=== PATIENT | female | born 1980 | race African-American/Black ===

== ENCOUNTER 2023-04-27 18:44 | Emergency (ER) | payer BC ==
[2023-04-27] MEDS ORDERED: Ibuprofen 200 MG TAB ONE (20:32)
[2023-04-27] MEDS ORDERED: Ondansetron ODT 4 MG TAB ONE (20:32)
[2023-04-27] MEDS ORDERED: Hydrochlorothiazide 25 MG TAB PO SCH (20:45)
== END 2023-04-27 21:50 | disposition home or self-care (01) ==
LOC: CSHERS 18:44
DX: I10 Essential (primary) hypertension (principal)
CPT/HCPCS: 99283; Q0162

== ENCOUNTER 2024-06-24 13:08 | Outpatient (CLI) | payer BC | END 2024-06-24 13:09 | disposition home or self-care (01) | LOC: CSHMAMMO 13:08 | PROVIDERS: ATTEND Nurse Practitioner Family | DX: Z12.31 Encounter for screening mammogram for malignant neoplasm of breast (principal); Z80.3 Family history of malignant neoplasm of breast | CPT/HCPCS: 77063; 77067 ==